=== PATIENT | female | born 1975 | race American Indian/Alaskan Native ===

== ENCOUNTER 2017-06-07 13:34 | Emergency (ER) | payer MEDICAID ==
[~2017-06-07] VITALS: Ht 165.1 cm; Wt 90.1 kg
[2017-06-07 13:48] VITALS: BP 132/87
[2017-06-07] MEDS ORDERED: METHOCARBAMOL 750 MG TABLET ONE (14:11)
[2017-06-07] MEDS ORDERED: KETOROLAC 30 MG/1 ML ONE ×2 (14:11→14:15)
[2017-06-07] MEDS ORDERED: KETOROLAC 30 MG/1 ML IM ONE (14:30)
[2017-06-07] MEDS ORDERED: METHOCARBAMOL 750 MG TABLET PO ONE (14:30)
== END 2017-06-07 15:59 | disposition home or self-care (01) ==
LOC: ED 14:44
DX: S39.012A Strain of muscle, fascia and tendon of lower back, initial encounter (principal); X58.XXXA Exposure to other specified factors, initial encounter; Y93.89 Activity, other specified; Y99.8 Other external cause status; Y92.89 Other specified places as the place of occurrence of the external cause
CPT/HCPCS: 96372; 99283; J1885

== ENCOUNTER 2017-11-27 21:00 | Emergency (ER) | payer MEDICAID ==
[~2017-11-27] VITALS: Ht 165.1 cm; Wt 86.2 kg
[2017-11-27 21:06] VITALS: BP 133/87
[2017-11-27] MEDS ORDERED: ALBUTEROL/IPRATROPIUM 2.5MG/0.5MG, 3 ML NPPB ONE (22:00)
[2017-11-27] MEDS ORDERED: ALBUTEROL/IPRATROPIUM 2.5MG/0.5MG, 3 ML ONE (22:16)
[2017-11-27] MEDS ORDERED: IBUPROFEN 200 MG TABLET ONE (22:47)
[2017-11-27] MEDS ORDERED: IBUPROFEN 800 MG TABLET PO ONE (23:00)
== END 2017-11-27 22:59 | disposition home or self-care (01) ==
LOC: ED 22:53
DX: J20.8 Acute bronchitis due to other specified organisms (principal); B97.89 Other viral agents as the cause of diseases classified elsewhere; J00 Acute nasopharyngitis [common cold]; F17.200 Nicotine dependence, unspecified, uncomplicated
CPT/HCPCS: 71046; 94640; 99284; J7620

== ENCOUNTER 2018-08-13 20:16 | Emergency (ER) | payer SELFPAY ==
[~2018-08-13] VITALS: Ht 165.1 cm; Wt 80.0 kg
[2018-08-13] MEDS ORDERED: KETOROLAC 30 MG/1 ML IM ONE (20:30)
[2018-08-13] MEDS ORDERED: PROMETHAZINE 25 MG/ML, 1ML IM ONE (20:30)
[2018-08-13] MEDS ORDERED: PROMETHAZINE 25 MG/ML, 1ML ONE (20:43)
[2018-08-13] MEDS ORDERED: KETOROLAC 30 MG/1 ML ONE (20:43)
[2018-08-13 20:56] LABS: BASOPHILS # (AUTO) 0.02 x10^3/uL (0-0.1); BASOPHILS % (AUTO) 0 % (0-1); EOSINOPHILS # (AUTO) 0.04 x10^3/uL (0-0.4); EOSINOPHILS % (AUTO) 1 % (1-7); LYMPHOCYTES # (AUTO) 0.76 x10^3/uL (1-3.4); LYMPHOCYTES % (AUTO) 17 % (22-44); MD NO; MEAN CORPUSCULAR HEMOGLOBIN 28.5 pg (27.0-34.8); MEAN CORPUSCULAR HGB CONC 33.4 g/dL (32.4-35.8); MEAN CORPUSCULAR VOLUME 85.3 fL (80-100); MONOCYTES # (AUTO) 0.29 x10^3/uL (0.2-0.8); MONOCYTES % (AUTO) 7 % (2-9); NEUTROPHILS # (AUTO) 3.25 x10^3/uL (1.8-6.8); NEUTROPHILS % (AUTO) 75 % (42-75); PLATELET COUNT 206 x10^3/uL (130-400); RED BLOOD COUNT 4.76 x10^6/uL (3.82-5.3); RED CELL DISTRIBUTION WIDTH 15.8 % (9.6-15.2)
[2018-08-13 21:05] LABS: CULTURE INDICATED? YES; MICROSCOPIC INDICATED
[2018-08-13 21:12] LABS: ALBUMIN 3.4 g/dL (3.4-5.0); ANION GAP 7 mmol/L (5-15); CALCIUM 8.1 mg/dL (8.5-10.1); CHLORIDE 103 mmol/L (98-107)
[2018-08-13 21:15] LABS: ALANINE AMINOTRANSFERASE 21 U/L (12-78); ALKALINE PHOSPHATASE 69 U/L (45-117); BILIRUBIN,TOTAL 0.4 mg/dL (0.2-1.0); CREATININE 0.75 mg/dL (0.55-1.02); TOTAL PROTEIN 7.5 g/dL (6.4-8.2)
[2018-08-13 22:46] LABS: AMPHETAMINE SCREEN, URINE Positive (Negative); BARBITURATE SCREEN, URINE Negative (Negative); BENZODIAZEPINE SCREEN, URINE Negative (Negative); CANNABINOID SCREEN, URINE Positive (Negative); COCAINE SCREEN, URINE Negative (Negative); METHADONE SCREEN, URINE Negative (Negative); OPIATE SCREEN, URINE Negative (Negative)
[2018-08-13] MEDS ORDERED: OMNIPAQUE 350 MG/ML, 100ML BOTTLE ONE (22:50)
[2018-08-13 23:51] VITALS: BP 110/81
== END 2018-08-13 23:53 | disposition home or self-care (01) ==
LOC: ED 22:48
DX: R10.13 Epigastric pain (principal); R10.33 Periumbilical pain; F41.1 Generalized anxiety disorder; Z90.49 Acquired absence of other specified parts of digestive tract; F17.200 Nicotine dependence, unspecified, uncomplicated
CPT/HCPCS: 36415; 71045; 74177; 80053; 80307; 81001; 81025; 83690; 85025; 87086; 96372; 99284; J1885; Q9967

== ENCOUNTER 2019-10-30 01:24 | Emergency (ER) | payer MEDICAID ==
[~2019-10-30] VITALS: Ht 167.6 cm; Wt 88.0 kg
[2019-10-30] MEDS ORDERED: CEFTRIAXONE 250 MG ONE (02:10)
[2019-10-30] MEDS ORDERED: AZITHROMYCIN 250 MG TABLET ONE (02:10)
[2019-10-30] MEDS ORDERED: AZITHROMYCIN 500 MG TABLET PO ONE (02:30)
[2019-10-30] MEDS ORDERED: CEFTRIAXONE 250 MG IM ONE (02:30)
[2019-10-30 02:36] LABS: BASOPHILS # (AUTO) 0.02 x10^3/uL (0-0.1); BASOPHILS % (AUTO) 0 % (0-1); EOSINOPHILS # (AUTO) 0.27 x10^3/uL (0-0.4); EOSINOPHILS % (AUTO) 6 % (1-7); LYMPHOCYTES # (AUTO) 1.11 x10^3/uL (1-3.4); LYMPHOCYTES % (AUTO) 23 % (22-44); MD NO; MEAN CORPUSCULAR HEMOGLOBIN 28.5 pg (27.0-34.8); MEAN CORPUSCULAR HGB CONC 32.7 g/dL (32.4-35.8); MEAN CORPUSCULAR VOLUME 87.2 fL (80-100); MEAN PLATELET VOLUME 8.6 fL (7.4-10.4); MONOCYTES # (AUTO) 0.48 x10^3/uL (0.2-0.8); MONOCYTES % (AUTO) 10 % (2-9); NEUTROPHILS # (AUTO) 2.98 x10^3/uL (1.8-6.8); NEUTROPHILS % (AUTO) 61 % (42-75); PLATELET COUNT 287 x10^3/uL (130-400); RED CELL DISTRIBUTION WIDTH 13.3 % (9.6-15.2)
[2019-10-30 02:45] LABS: ALBUMIN 2.7 g/dL (3.4-5.0); ANION GAP 4 mmol/L (5-15); CALCIUM 8.2 mg/dL (8.5-10.1); CHLORIDE 107 mmol/L (98-107); CREATININE 0.72 mg/dL (0.55-1.02)
[2019-10-30] MEDS ORDERED: OXYcodone/APAP 7.5/325MG TABLET PO ONE (03:00)
--- NOTE | 2019-10-30 03:01 | NUR ---
received report from JOSÉ Hightower. PA at bedside for pelvic exam.
[2019-10-30] MEDS ORDERED: ACYCLOVIR IV ONE ×2 (03:30→04:00)
[2019-10-30] MEDS ORDERED: HYDROmorphone 1 MG/ML, 1ML INJ IVPush PRN (03:30)
[2019-10-30] MEDS ORDERED: SODIUM CHLORIDE 0.9% IV ONE ×2 (03:30→04:00)
[2019-10-30] MEDS ORDERED: HYDROmorphone 1 MG/ML, 1ML INJ ONE (03:41)
[2019-10-30 03:57] LABS: CLUE CELLS NONE SEEN (NONE SEEN); WET PREP WBCS FEW (FEW)
[2019-10-30] MEDS ORDERED: metroNIDAZOLE 500 MG TABLET PO ONE (05:00)
[2019-10-30] MEDS ORDERED: ONDANSETRON 2MG/ML, 2ML IVPush ONE (05:00)
[2019-10-30] MEDS ORDERED: metroNIDAZOLE 500 MG TABLET ONE (05:00)
[2019-10-30] MEDS ORDERED: ONDANSETRON 2MG/ML, 2ML ONE (05:03)
--- NOTE | 2019-10-30 05:06 | NUR ---
patient medicated for nausea. antibiotic infusing.
--- NOTE | 2019-10-30 05:38 | NUR ---
antibiotic done. patient discharged with prescriptions and instruction. verbalized understanding.
[2019-10-30 05:39] VITALS: BP 115/68
== END 2019-10-30 06:14 | disposition home or self-care (01) ==
LOC: ED 06:09
DX: A56.02 Chlamydial vulvovaginitis (principal); A59.01 Trichomonal vulvovaginitis; A54.02 Gonococcal vulvovaginitis, unspecified; A60.04 Herpesviral vulvovaginitis; N73.0 Acute parametritis and pelvic cellulitis; R10.32 Left lower quadrant pain; R10.31 Right lower quadrant pain
CPT/HCPCS: 36415; 80048; 82040; 84703; 85025; 87210; 87529; 87806; 87808; 96365; 96372; 96375; 99284; J0133; J0696; J1170; J2405; J7050; G0475